=== PATIENT | male | born 1950 | race Caucasian/White ===

== ENCOUNTER 2017-09-04 16:15 | Inpatient (IN) | payer OTHER ==
[2017-09-04 16:26] VITALS: BMI 28.3
--- NOTE | 2017-09-04 16:30 | PDOC ---
Rapid Medical Evaluation Chief Complaint: Chest Pain Time Seen by Provider: 09/04/17 16:27 Medical Evaluation: Vital Signs Temp Pulse Resp BP Pulse Ox 97.8 F 174 H 18 124/82 98 09/04/17 16:23 09/04/17 16:23 09/04/17 16:23 09/04/17 16:23 09/04/17 16:23 09/04/17 16:28 Patient c/o: was at dr perea office for follow up/check up when he found to be in R afib. Pt w/ hx of cad w/ stents. C/o indegestion only Patient on brief exam: isabelle rate 170s. Pateint ordered for: labs, ekg, cxr, went directly to the main Ed for orders to be completed Patient to proceed to the ED Discharge Disposition - Diagnosis Rapid atrial fibrillation - Referrals - Patient Instructions - Post Discharge Activity
[2017-09-04] MEDS ORDERED: dilTIAZem HCL 50 MG/10 ML - 10 ML VIAL IVPUSH ONE (16:40)
[2017-09-04] MEDS ORDERED: dilTIAZem HCL 30 MG TABLET (FP) PO ONE (16:41)
[2017-09-04] MEDS ORDERED: dilTIAZem HCL 125 MG/25 ML - 25 ML VIAL ONE (16:44)
--- NOTE | 2017-09-04 16:52 | PDOC ---
History of Present Illness - General Chief Complaint: Chest Pain Stated Complaint: CHEST PAIN Time Seen by Provider: 09/04/17 16:27 - History of Present Illness Initial Comments: 09/04/17 16:46 Mr. Hawthorne is a 66 yo male w/ pmh of HTN, HLD and CAD (multiple stents, last in 2014) who presents for evaluation after regularly scheduled cardiac stress test yielded afib with rvr. Patient was sent down to ER following this. He currently has no complaints. The patient denies chest pain, shortness of breath, headache and dizziness. Denies fever, chills, nausea, vomit, diarrhea and constipation. Denies dysuria, frequency, urgency and hematuria. Allergies: NKDA Past History - Past Medical History Allergies/Adverse Reactions: Allergies Allergy/AdvReac Type Severity Reaction Status Date / Time No Known Allergies Allergy Verified 09/04/17 18:16 Home Medications: Ambulatory Orders Amlodipine Besylate 2.5 mg PO DAILY 09/04/17 Aspirin [ASA -] 81 mg PO DAILY 09/04/17 Atorvastatin Calcium 40 mg PO DAILY 09/04/17 Clopidogrel Bisulfate [Clopidogrel] 75 mg PO DAILY 09/04/17 Losartan Potassium 100 mg PO DAILY 09/04/17 Metoprolol Succinate 50 mg PO DAILY 09/04/17 Cardiac Disorders: Yes (stents) COPD: No HTN: Yes - Surgical History Cardiac Surgery: Yes (stents) - Suicide/Smoking/Psychosocial Hx Smoking History: Never smoked Review of Systems - Review of Systems Comments:: 09/04/17 17:25 GENERAL/CONSTITUTIONAL: No fever or chills. No weakness. HEAD, EYES, EARS, NOSE AND THROAT: No change in vision. No ear pain or discharge. No sore throat. CARDIOVASCULAR: No chest pain or shortness of breath RESPIRATORY: No cough, wheezing, or hemoptysis. GASTROINTESTINAL: No nausea, vomiting, diarrhea or constipation. GENITOURINARY: No dysuria, frequency, or change in urination. MUSCULOSKELETAL: No joint or muscle swelling or pain. No neck or back pain. SKIN: No rash NEUROLOGIC: No headache, vertigo, loss of consciousness, or change in strength/ sensation. ENDOCRINE: No increased thirst. No abnormal weight change HEMATOLOGIC/LYMPHATIC: No anemia, easy bleeding, or history of blood clots. ALLERGIC/IMMUNOLOGIC: No hives or skin allergy. *Physical Exam - Vital Signs Last Vital Signs Temp Pulse Resp BP Pulse Ox 97.8 F 174 H 18 124/82 98 09/04/17 16:23 09/04/17 16:23 09/04/17 16:23 09/04/17 16:23 09/04/17 16:23 - Physical Exam Comments: 09/04/17 17:25 GENERAL: Awake, alert, and fully oriented, in no acute distress HEAD: No signs of trauma, normocephalic, atraumatic EYES: PERRLA, EOMI, sclera anicteric, conjunctiva clear ENT: Auricles normal inspection, hearing grossly normal, nares patent, oropharynx clear without exudates. Moist mucosa NECK: Normal ROM, supple, no lymphadenopathy, JVD, or masses LUNGS: No distress, speaks full sentences, clear to auscultation bilaterally HEART: +Rate and rhythm extremely fluctuant from 70-170. Normal S1 and S2, no murmurs, rubs or gallops, peripheral pulses normal and equal bilaterally. ABDOMEN: Soft, nontender, normoactive bowel sounds. No guarding, no rebound. No masses EXTREMITIES: Normal inspection, Normal range of motion, no edema. No clubbing or cyanosis. NEUROLOGICAL: Cranial nerves II through XII grossly intact. Normal speech, normal gait, no focal sensorimotor deficits SKIN: Warm, Dry, normal turgor, no rashes or lesions noted. ED Treatment Course - LABORATORY CBC & Chemistry Diagram: 09/04/17 16:43 09/04/17 16:43 Medical Decision Making - Medical Decision Making 09/04/17 17:25 Mr. Hawthorne is a 66 yo male w/ pmh as described who presents for evaluation of noted afib at scheduled exam. Discussed patient with Dr. Miller who suggests administration of daily metoprolol (had been holding for scheduled stress test today) and rate control with diltiazem - also A/C following labs. Will comply. Cardiac workup started. Per cardiology daily meds: 2.5 amlodipine asa 81 plavix 75 losartan 40 metoprolol succinate 09/04/17 18:03 Patient currently feeling fine however history concerning, admitting for telemetry and further cardiology workup. 09/04/17 18:51 Patient admitted to hospitalist team. *DC/Admit/Observation/Transfer Diagnosis at time of Disposition: Rapid atrial fibrillation - Discharge Dispostion Decision to Admit order: Yes - Referrals Referrals: Marco Leon [Primary Care Provider] - - Patient Instructions - Post Discharge Activity
[2017-09-04 17:10] LABS: BASO % 0.8 % (0-2.0); HEMATOCRIT 43.2 % (35.4-49); HEMOGLOBIN 14.8 GM/dL (11.7-16.9); LYMPH % 33.4 % (8-40); MCH 29.9 pg (25.7-33.7); MCHC 34.3 g/dl (32.0-35.9); MEAN CELL VOLUME 87.2 fl (80-96); MEAN PLT VOLUME 8.7 fl (7.5-11.1); MONO % 10.6 % (3.8-10.2); NEUT % 51.2 % (42.8-82.8); PLATELET COUNT 163 K/MM3 (134-434); RBC 4.96 M/mm3 (4.00-5.60); RDW 13.9 % (11.9-15.9); WHITE BLOOD COUNT 6.4 K/mm3 (4.0-10.0)
[2017-09-04 17:32] LABS: INR 1.02 (0.82-1.09); PROTHROMBIN TIME (PATIENT) 11.5 SEC (9.7-13.0)
--- NOTE | 2017-09-04 17:33 | PDOC ---
Attending Attestation - Resident Resident Name: Rivas Villafuerte - ED Attending Attestation I have performed the following: I have examined & evaluated the patient, The case was reviewed & discussed with the resident, I agree w/resident's findings & plan, Exceptions are as noted - HPI HPI: 09/04/17 17:30 66-year-old male sent from cardiology for new onset atrial fibrillation, rate in the 170s. The patient's feather cutting machine feeder is preparing him for stress test at this time. Patient does have a history of coronary artery disease and has had prior cardiac stents - Physicial Exam PE: 09/04/17 17:34 66 yo male with rapid heart rate head ncat neck supple lungs no rales,no wheezing cvs- tachycardia, irreg,irreg rhythm abd soft,nontender ext no edema neuro axox3,ambulatory psych appropriate skin warm and dry - Medical Decision Making 09/04/17 17:36 case discussed w feather cutting machine feeder, will trend the trop, plan is for stress test after r/o IA
[2017-09-04 17:37] LABS: URINE APPEARANCE CLEAR; URINE BILIRUBIN NEGATIVE (<2.0 mg/dL); URINE COLOR COLORLESS; URINE GLUCOSE (UA) NEGATIVE (NEGATIVE); URINE KETONE NEGATIVE (NEGATIVE); URINE LEUK ESTERASE NEGATIVE (NEGATIVE); URINE NITRITE NEGATIVE (NEGATIVE); URINE PROTEIN NEGATIVE (NEGATIVE); URINE UROBILINOGEN NEGATIVE mg/dL (0.2-1.0)
[2017-09-04 17:44] LABS: ALBUMIN 3.8 g/dl (3.4-5.0); ANION GAP 9 (8-16); BILIRUBIN,TOTAL 0.9 mg/dL (0.2-1.0); BLOOD UREA NITROGEN 17 mg/dL (7-18); CALCIUM 8.6 mg/dL (8.5-10.1); CHLORIDE 107 mmol/L (98-107); CO2 25 mmol/L (21-32); GLUCOSE,RANDOM 85 mg/dL (74-106); POTASSIUM 3.9 mmol/L (3.5-5.1); SGOT/AST 22 U/L (15-37); SGPT/ALT 36 U/L (12-78); SODIUM 141 mmol/L (136-145); TOT PROT 7.1 g/dl (6.4-8.2)
[2017-09-04 17:47] LABS: ALK PHOS 71 U/L (45-117)
[2017-09-04] MEDS ORDERED: HEPARIN NA (PORCINE) 5,000 UNITS/ML 1ML VIAL IVPUSH PRN ×2 (18:16→21:36)
[2017-09-04] MEDS ORDERED: HEPARIN INFUSION - 25,000 UNITS/500 ML INFUS.BAG IVPB ONE (18:33)
[2017-09-04] MEDS: HEPARIN - 25,000 UNIT in SODIUM CHLORIDE 495 ML IV SCH (18:54)
--- NOTE | 2017-09-04 19:54 | PN ---
Teaching Attending Note Name of Resident: Kristin Castaneda ATTENDING PHYSICIAN STATEMENT I saw and evaluated the patient. I reviewed the resident's note and discussed the case with the resident. I agree with the resident's findings and plan as documented. SUBJECTIVE: Patient is a 66 year old man with pmh of HTN, HLD and CAD (multiple stents, last in 2014) who presents for evaluation after regularly scheduled cardiac stress test yielded Afib with RVR. 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 He currently has no complaints. OBJECTIVE: Alert and in no acute distress Vital Signs Period Temp Pulse Resp BP Sys/Nieto Pulse Ox Last 24 Hr 97.8 F-98.1 F 64-174 17-18 115-124/82-84 98-98 HEENT: No Jaundice, eye redness or discharge, PERRLA, EOMI. Normocephalic, atraumatic. External ears are normal and hearing is grossly intact. No nasal discharge. Neck: Supple, nontender. No palpable adenopathy or thyromegaly. No JVD Chest: Good effort. Clear to auscultation and percussion. Heart: Now in NSR after treatment in the ER. No S3, rub or murmur Abdomen: Not distended, soft, nontender and no HSM. No rebound or guarding. Normoactive bowel sounds. Ext: Peripheral pulses intact. No leg edema. Skin: Warm and dry. No petechiae, rash or ecchymosis. Neuro: Alert. Oriented x3. CN 2-12 grossly intact. Sensation grossly intact in all four extremities and DTR are symmetric. Current Medications Generic Name Dose Route Start Last Admin Trade Name Freq PRN Reason Stop Dose Admin Heparin Sodium (Porcine) 5,000 unit 09/04/17 18:16 Heparin - IVPUSH PRN PRN Heparin Heparin Sodium (Porcine) 25, 500 mls @ 20 mls/hr 09/04/17 18:30 09/04/17 18: 54 000 unit/ Sodium Chloride IV 1,000 unit/hr TITR DARRIAN 20 mls/hr Administration Protocol 1,000 UNIT/HR Home Medications Medication Instructions Recorded Amlodipine Besylate 2.5 mg PO DAILY 09/04/17 Aspirin [ASA -] 81 mg PO DAILY 09/04/17 Atorvastatin Calcium 40 mg PO DAILY 09/04/17 Clopidogrel Bisulfate [Clopidogrel] 75 mg PO DAILY 09/04/17 Losartan Potassium 100 mg PO DAILY 09/04/17 Metoprolol Succinate 50 mg PO DAILY 09/04/17 Abnormal Lab Results 09/04/17 09/04/17 16:43 16:43 Monocytes % 10.6 H CK-MB (CK-2) 4.09 H Current Medications Generic Name Dose Route Start Last Admin Trade Name Freq PRN Reason Stop Dose Admin Amlodipine Besylate 2.5 mg 09/05/17 10:00 Norvasc - PO DAILY [facility] Aspirin 81 mg 09/05/17 10:00 Asa - PO DAILY [facility] Atorvastatin Calcium 40 mg 09/04/17 22:00 Lipitor - PO HS [facility] Clopidogrel Bisulfate 75 mg 09/05/17 10:00 Plavix - PO DAILY [facility] Heparin Sodium (Porcine) 5,000 unit 09/04/17 18:16 Heparin - IVPUSH PRN PRN Heparin Heparin Sodium (Porcine) 1,000 unit 09/04/17 21:36 Heparin - IVPUSH PRN PRN Heparin Heparin Sodium (Porcine) 25, 500 mls @ 20 mls/hr 09/04/17 18:30 09/04/17 18: 54 000 unit/ Sodium Chloride IV 1,000 unit/hr TITR DARRIAN 20 mls/hr Administration Protocol 1,000 UNIT/HR Losartan Potassium 100 mg 09/05/17 10:00 Losartan Potassium PO DAILY [facility] Metoprolol Succinate 50 mg 09/05/17 10:00 Toprol Xl - PO DAILY [facility] ASSESSMENT AND PLAN: 1. New onset Afib with RVR - Patient started on IV heparin drip and on Metoprolol for rate control. Transition to a DOAC tomorrow for anticoagulation and get ECHO. EKG now shows NSR but had afib with RVR on arrival. No significant ST-T changes. Will monitor on Telemetry and do serial EKG and Troponin to rule out ACS. No infiltrates on CXR. 2. Hypertension - Continue current regimen. 3. DVT prophylaxis - On IV Heparin drip 4. Advance directives - Full code
--- NOTE | 2017-09-04 21:50 | HP ---
CHIEF COMPLAINT: Irregular HR PCP: Dr Vivi Cullen HISTORY OF PRESENT ILLNESS: The patient is a 66 year old male with a significant PMH of HTN, dyslipidemia, CAD, s/p 8 stents in 2014, 2015 that presented to the hospital referred from his [facility] office. He was about to have stress test, when he was found to have rapid A.Fib with RVR at 170. He was immidiately referred to the hospital. The patient denies having chest pain, palpitations, dizziness, lightheadedness. He denies having irregular heart rate in the past. The patient states that his housing counselor told him not to take Metoprolol for the past two days. He denies abdominal pain, N/V, diarrhea, fever, chills. He denies dysuria, increased frequency, urgency to urinate. 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 Family History: Parents: he doesn't know their PMH daughter: HTN Allergies No Known Allergies Allergy (Verified 09/04/17 18:16) HOME MEDICATIONS: Home Medications Medication Instructions Recorded Amlodipine Besylate 2.5 mg PO DAILY 09/04/17 Aspirin [ASA -] 81 mg PO DAILY 09/04/17 Atorvastatin Calcium 40 mg PO DAILY 09/04/17 Clopidogrel Bisulfate [Clopidogrel] 75 mg PO DAILY 09/04/17 Losartan Potassium 100 mg PO DAILY 09/04/17 Metoprolol Succinate 50 mg PO DAILY 09/04/17 REVIEW OF SYSTEMS CONSTITUTIONAL: Absent: fever, chills, diaphoresis, generalized weakness, malaise, loss of appetite, weight change HEENT: Absent: rhinorrhea, nasal congestion, throat pain, throat swelling, difficulty swallowing, visual changes CARDIOVASCULAR: Absent: chest pain, syncope, palpitations, irregular heart rate, lightheadedness , peripheral edema RESPIRATORY: Absent: cough, shortness of breath, dyspnea with exertion, orthopnea, wheezing GASTROINTESTINAL: Absent: abdominal pain, abdominal distension, nausea, vomiting, diarrhea, constipation GENITOURINARY: Absent: dysuria, frequency, urgency, hesitancy, hematuria, flank pain, MUSCULOSKELETAL: chronic knee pain Absent: myalgia, joint swelling, back pain, neck pain SKIN: Absent: rash, itching, pallor HEMATOLOGIC/IMMUNOLOGIC: Absent: easy bleeding, easy bruising, lymphadenopathy, frequent infections ENDOCRINE: Absent: unexplained weight gain, unexplained weight loss NEUROLOGIC: Absent: headache, focal weakness or paresthesias, dizziness, unsteady gait, seizure, mental status changes PSYCHIATRIC: Absent: anxiety, depression PHYSICAL EXAMINATION Vital Signs - 24 hr 09/04/17 09/04/17 09/04/17 16:23 16:57 17:26 Temperature 97.8 F 98.1 F Pulse Rate 174 H Pulse Rate [ 64 Apical] Respiratory 18 17 Rate Blood Pressure 124/82 Blood Pressure [Left Arm] Blood Pressure 115/84 [Right Arm] O2 Sat by Pulse 98 98 98 Oximetry (%) 09/04/17 20:01 Temperature 98.2 F Pulse Rate Pulse Rate [ 63 Apical] Respiratory 17 Rate Blood Pressure Blood Pressure 112/78 [Left Arm] Blood Pressure [Right Arm] O2 Sat by Pulse 100 Oximetry (%) GENERAL: Awake, alert, and fully oriented, in no acute distress, lying comfortably in bed. HEAD: Normal with no signs of trauma. EYES: Pupils equal, round and reactive to light, extraocular movements intact, sclera anicteric, conjunctiva clear. EARS, NOSE, THROAT: Oropharynx clear without exudates. Moist mucous membranes. NECK: Normal range of motion, supple without lymphadenopathy, JVD, or masses. LUNGS: Breath sounds equal, clear to auscultation bilaterally. No wheezes, and no crackles. No accessory muscle use. HEART: Regular rate and rhythm, normal S1 and S2 without murmur, rub or gallop. ABDOMEN: Soft, nontender, not distended, normoactive bowel sounds, no guarding, no rebound, no masses. No hepatomegaly or splenomegaly. MUSCULOSKELETAL: Normal range of motion at all joints. No bony deformities or tenderness. UPPER EXTREMITIES: No peripheral edema. LOWER EXTREMITIES: 2+ pulses, no peripheral edema. NEUROLOGICAL: No facial asymmetry, no slurred speech, normal motor 5/5 in all extremities. Gait not observed. PSYCHIATRIC: Cooperative. Good eye contact. Appropriate mood and affect. SKIN: Warm, dry, normal turgor, no rashes or lesions noted. Laboratory Results - last 24 hr 09/04/17 09/04/17 09/04/17 16:43 16:43 16:43 WBC 6.4 RBC 4.96 Hgb 14.8 Hct 43.2 MCV 87.2 MCH 29.9 MCHC 34.3 RDW 13.9 Plt Count 163 MPV 8.7 Absolute Neuts (auto) 3.3 Neutrophils % 51.2 Lymphocytes % 33.4 Monocytes % 10.6 H Eosinophils % 4.0 Basophils % 0.8 Nucleated RBC % 0 PT with INR INR PTT (Actin FS) Sodium 141 Potassium 3.9 Chloride 107 Carbon Dioxide 25 Anion Gap 9 BUN 17 Creatinine 1.0 Creat Clearance w eGFR > 60 Random Glucose 85 Calcium 8.6 Total Bilirubin 0.9 AST 22 ALT 36 Alkaline Phosphatase 71 Creatine Kinase 172 Creatine Kinase Index 2.3 CK-MB (CK-2) 4.09 H Troponin I < 0.02 Total Protein 7.1 Albumin 3.8 Urine Color Urine Appearance Urine pH Ur Specific [place] Urine Protein Urine Glucose (UA) Urine Ketones Urine Blood Urine Nitrite Urine Bilirubin Urine Urobilinogen Ur Leukocyte Esterase Blood Type O POSITIVE Antibody Screen Negative 09/04/17 09/04/17 09/04/17 16:50 16:52 18:55 WBC RBC Hgb Hct MCV MCH MCHC RDW Plt Count MPV Absolute Neuts (auto) Neutrophils % Lymphocytes % Monocytes % Eosinophils % Basophils % Nucleated RBC % PT with INR 11.50 INR 1.02 PTT (Actin FS) 36.4 Sodium Potassium Chloride Carbon Dioxide Anion Gap BUN Creatinine Creat Clearance w eGFR Random Glucose Calcium Total Bilirubin AST ALT Alkaline Phosphatase Creatine Kinase Creatine Kinase Index CK-MB (CK-2) Troponin I Total Protein Albumin Urine Color Colorless Urine Appearance Clear Urine pH 6.0 Ur Specific [place] 1.003 Urine Protein Negative Urine Glucose (UA) Negative Urine Ketones Negative Urine Blood Negative Urine Nitrite Negative Urine Bilirubin Negative Urine Urobilinogen Negative Ur Leukocyte Esterase Negative Blood Type Antibody Screen ASSESSMENT/PLAN: The patient is a 66 year old male with a significant PMH of HTN, dyslipidemia, CAD, s/p 8 stents in 2014, 2015 that presented to the hospital referred from his [facility] [employer] office. He was about to have stress test, when he was found to have rapid A.Fib with RVR at 170. He is admitted for new onset A.Fib. with RVR. New onset A.Fib with RVR: -not known what triggered new onset, acute coronary syndrome needs to be R/O -the patient was given Cardizem 20 mg IV followed by 30 mg PO in ED -as per his [employer] recommendations ED restarted Metoprolol 50 mg PO daily -he was also started on AC: Heparin drip -first troponin in ED was negative, will follow serial troponins -will follow EKG, -ECHO ordered -cardiac monitoring -telemetry monitoring HTN: -continue Metoprolol 50 mg qd and Losartan 10 mg qd -controlled in the hospital 124/82 on admission CAD: -continue ASA and Plavix -no chest pain, neg troponins DVT PPX: -on heparin drip -scds F/E/N: no/no changes/low Na Disposition: telemetry Discussed with attending Dr Murry Problem List - Problem (1) Hypertension Code(s): I10 - ESSENTIAL (PRIMARY) HYPERTENSION (2) Dyslipidemia Code(s): E78.5 - HYPERLIPIDEMIA, UNSPECIFIED (3) CAD (coronary artery disease) Code(s): I25.10 - ATHSCL HEART DISEASE OF [place] CORONARY ARTERY W/O ANG PCTRS (4) Rapid atrial fibrillation Code(s): I48.91 - UNSPECIFIED ATRIAL FIBRILLATION Visit type - Emergency Visit Emergency Visit: Yes ED Registration Date: 09/04/17 Care time: The patient presented to the Emergency Department on the above date and was hospitalized for further evaluation of their emergent condition. - New Patient This patient is new to me today: Yes Date on this admission: 09/05/17 - Critical Care Critical Care patient: No Hospitalist Screening - Colonoscopy Questionnaire Colonoscopy Questionnaire: Colonoscopy Questionnaire - Patient: 50 - 75 years old and never had a screening colonoscopy: Unknown History of colon or rectal polyps, or CA: Unknown History of IBD, Crohn's disease or UC: Unknown History of abdominal radiation therapy as a child: Unknown - Relative: 1 with colon or rectal CA, or polyps at age 60 or younger: Unknown Colon or rectal CA diagnosed at age 45 or younger: Unknown Multiple relatives with colon or rectal CA: Unknown - Outcome: Screening Result: Negative Screen
[2017-09-04] MEDS: ATORVASTATIN CA 40 MG TABLET (FP) PO SCH (22:20)
[2017-09-04] MEDS ORDERED: ATORVASTATIN CA 40 MG TABLET (FP) ONE (22:38)
[2017-09-05 00:59] LABS: INR 1.12 (0.82-1.09); PROTHROMBIN TIME (PATIENT) 12.7 SEC (9.7-13.0)
[2017-09-05 06:50] LABS: BASO % 0.9 % (0-2.0); EOS % 4.7 % (0-4.5); HEMATOCRIT 39.9 % (35.4-49); HEMOGLOBIN 13.8 GM/dL (11.7-16.9); LYMPH % 30.5 % (8-40); MCH 30.2 pg (25.7-33.7); MCHC 34.6 g/dl (32.0-35.9); MEAN CELL VOLUME 87.3 fl (80-96); MEAN PLT VOLUME 8.5 fl (7.5-11.1); MONO % 8.3 % (3.8-10.2); NEUT % 55.6 % (42.8-82.8); PLATELET COUNT 137 K/MM3 (134-434); RBC 4.57 M/mm3 (4.00-5.60); RDW 13.8 % (11.9-15.9); WHITE BLOOD COUNT 6.1 K/mm3 (4.0-10.0)
[2017-09-05 07:20] LABS: INR 1.07 (0.82-1.09); PROTHROMBIN TIME (PATIENT) 12.1 SEC (9.7-13.0)
[2017-09-05 07:28] LABS: CHOLESTEROL 90 mg/dL (50-200)
[2017-09-05 07:33] LABS: HDL CHOLESTEROL 33 mg/dL (40-60); TRIGLYCERIDES 81 mg/dL (35-160)
[2017-09-05] MEDS: HEPARIN - 25,000 UNIT in SODIUM CHLORIDE 495 ML IV SCH (07:44)
[2017-09-05 08:54] LABS: ALBUMIN 3.4 g/dl (3.4-5.0); ANION GAP 10 (8-16); BLOOD UREA NITROGEN 18 mg/dL (7-18); CALCIUM 8.2 mg/dL (8.5-10.1); CHLORIDE 108 mmol/L (98-107); CO2 23 mmol/L (21-32); CREATININE 0.9 mg/dL (0.7-1.3); GLUCOSE,RANDOM 118 mg/dL (74-106); PHOSPHOROUS 2.6 mg/dL (2.5-4.9); POTASSIUM 3.8 mmol/L (3.5-5.1); SGOT/AST 19 U/L (15-37); SGPT/ALT 32 U/L (12-78); SODIUM 141 mmol/L (136-145)
[2017-09-05 08:59] LABS: ALK PHOS 62 U/L (45-117); BILIRUBIN,TOTAL 0.7 mg/dL (0.2-1.0); TOT PROT 6.2 g/dl (6.4-8.2)
[2017-09-05] MEDS: LOSARTAN POTASSIUM 50 MG TABLET (FP) PO SCH (09:51)
[2017-09-05] MEDS: CLOPIDOGREL BISULFATE 75 MG TABLET (FP) PO SCH (09:51)
[2017-09-05] MEDS ORDERED: amLODIPine BESYLATE 2.5 MG TABLET (FP) PO SCH (10:00)
[2017-09-05] MEDS ORDERED: ASPIRIN 81 MG CHEWABLE TABLETS PO SCH (10:00)
--- NOTE | 2017-09-05 10:40 | EKG ---
Test Reason : Blood Pressure : / mmHG Vent. Rate : 055 BPM Atrial Rate : 055 BPM P-R Int : 166 ms QRS Dur : 088 ms QT Int : 444 ms P-R-T Axes : 010 -21 044 degrees QTc Int : 424 ms SINUS BRADYCARDIA OTHERWISE NORMAL ECG WHEN COMPARED WITH ECG OF 04-SEP-2017 16:34, NO SIGNIFICANT CHANGE WAS FOUND Confirmed by ISABEL SEARS MD ([id number]) on 09/05/2017 10:40:39 AM Referred By: Parminder CHAPPELL Confirmed By:ISABEL SEARS MD
--- NOTE | 2017-09-05 10:41 | EKG ---
Test Reason : Blood Pressure : / mmHG Vent. Rate : 077 BPM Atrial Rate : 077 BPM P-R Int : 162 ms QRS Dur : 088 ms QT Int : 348 ms P-R-T Axes : 035 -33 045 degrees QTc Int : 393 ms NORMAL SINUS RHYTHM WITH SINUS ARRHYTHMIA POSSIBLE LEFT ATRIAL ENLARGEMENT LEFT AXIS DEVIATION ABNORMAL ECG NO PREVIOUS ECGS AVAILABLE Confirmed by ISABEL SEARS MD ([id number]) on 09/05/2017 10:41:33 AM Referred By: Confirmed By:ISABEL SEARS MD
--- NOTE | 2017-09-05 12:02 | PN ---
Progress Note, Physician History of Present Illness: sent from the office for PAF with RVR PMH CAD- Positive treadmill stress test May 02, 2014 Ila [place] of mid LCx December 24, 2014 Dr. Ravi [place] of pLAD October 08, 2014 Dr. Ravi Hypertension 2000 PCI [place] pLCX and OM1 2014 Dr. Ravi PCI LAD October 07, 2015 Dr. Ravi PCI p and mRCA [place] [employer] 2014 Dr. Ravi Triple vessel coronary artery disease September 25, 2014 Dr. Ravi Paroxysmal Atrial Fibrillation August 2017 - Current Medication List Current Medications: Active Medications Aspirin (Asa -) 81 mg PO DAILY [facility] Last Admin: 09/05/17 09:51 Dose: 81 mg Atorvastatin Calcium (Lipitor -) 40 mg PO HS [facility] Last Admin: 09/04/17 22:20 Dose: 40 mg Clopidogrel Bisulfate (Plavix -) 75 mg PO DAILY [facility] Last Admin: 09/05/17 09:51 Dose: 75 mg Heparin Sodium (Porcine) (Heparin -) 5,000 unit IVPUSH PRN PRN PRN Reason: Heparin Heparin Sodium (Porcine) (Heparin -) 1,000 unit IVPUSH PRN PRN PRN Reason: Heparin Heparin Sodium (Porcine) 25, (000 unit/ Sodium Chloride) 500 mls @ 20 mls/hr IV TITR [facility]; Protocol Last Admin: 09/05/17 07:44 Dose: 900 unit/hr, 18 mls/hr Losartan Potassium (Cozaar -) 100 mg PO DAILY [facility] Last Admin: 09/05/17 09:51 Dose: 100 mg Metoprolol Succinate (Toprol Xl -) 50 mg PO DAILY [facility] Last Admin: 09/05/17 09:51 Dose: 50 mg - Objective Vital Signs: Vital Signs Temperature 98 F 09/05/17 09:48 Pulse Rate 60 09/05/17 09:48 Respiratory Rate 20 09/05/17 10:56 Blood Pressure 130/79 09/05/17 09:48 O2 Sat by Pulse Oximetry (%) 100 09/05/17 10:56 Eyes: Yes: WNL, Conjunctiva Clear, EOM Intact HENT: Yes: WNL, Atraumatic, Normocephalic Neck: Yes: WNL, Supple, Trachea Midline Cardiovascular: Yes: WNL, Regular Rate and Rhythm Respiratory: Yes: WNL, Regular, CTA Bilaterally Gastrointestinal: Yes: WNL, Normal Bowel Sounds Genitourinary: Yes: WNL Musculoskeletal: Yes: WNL Extremities: Yes: WNL Edema: No Integumentary: Yes: WNL Neurological: Yes: WNL, Alert, Oriented ...Motor Strength: WNL Psychiatric: Yes: WNL Labs: CBC, BMP 09/05/17 06:30 09/05/17 06:30 INR, PTT INR 1.07 (0.82-1.09) 09/05/17 06:30 Laboratory Tests 09/04/17 09/04/17 09/04/17 16:43 16:43 16:43 WBC 6.4 RBC 4.96 Hgb 14.8 Hct 43.2 MCV 87.2 MCH 29.9 MCHC 34.3 RDW 13.9 Plt Count 163 MPV 8.7 Absolute Neuts (auto) 3.3 Neutrophils % 51.2 Lymphocytes % 33.4 Monocytes % 10.6 H Eosinophils % 4.0 Basophils % 0.8 Nucleated RBC % 0 PT with INR INR PTT (Actin FS) Sodium 141 Potassium 3.9 Chloride 107 Carbon Dioxide 25 Anion Gap 9 BUN 17 Creatinine 1.0 Creat Clearance w eGFR > 60 Random Glucose 85 Calcium 8.6 Phosphorus Magnesium Total Bilirubin 0.9 AST 22 ALT 36 Alkaline Phosphatase 71 Creatine Kinase 172 Creatine Kinase Index 2.3 CK-MB (CK-2) 4.09 H Troponin I < 0.02 Total Protein 7.1 Albumin 3.8 Triglycerides Cholesterol Total LDL Cholesterol HDL Cholesterol Urine Color Urine Appearance Urine pH Ur Specific [place] Urine Protein Urine Glucose (UA) Urine Ketones Urine Blood Urine Nitrite Urine Bilirubin Urine Urobilinogen Ur Leukocyte Esterase Blood Type O POSITIVE Antibody Screen Negative 09/04/17 09/04/17 09/04/17 16:50 16:52 18:55 WBC RBC Hgb Hct MCV MCH MCHC RDW Plt Count MPV Absolute Neuts (auto) Neutrophils % Lymphocytes % Monocytes % Eosinophils % Basophils % Nucleated RBC % PT with INR 11.50 INR 1.02 PTT (Actin FS) 36.4 Sodium Potassium Chloride Carbon Dioxide Anion Gap BUN Creatinine Creat Clearance w eGFR Random Glucose Calcium Phosphorus Magnesium Total Bilirubin AST ALT Alkaline Phosphatase Creatine Kinase Creatine Kinase Index CK-MB (CK-2) Troponin I Total Protein Albumin Triglycerides Cholesterol Total LDL Cholesterol HDL Cholesterol Urine Color Colorless Urine Appearance Clear Urine pH 6.0 Ur Specific [place] 1.003 Urine Protein Negative Urine Glucose (UA) Negative Urine Ketones Negative Urine Blood Negative Urine Nitrite Negative Urine Bilirubin Negative Urine Urobilinogen Negative Ur Leukocyte Esterase Negative Blood Type Antibody Screen 09/05/17 09/05/17 09/05/17 00:40 00:40 00:40 WBC RBC Hgb Hct MCV MCH MCHC RDW Plt Count MPV Absolute Neuts (auto) Neutrophils % Lymphocytes % Monocytes % Eosinophils % Basophils % Nucleated RBC % PT with INR 12.70 INR 1.12 PTT (Actin FS) 76.7 H D Sodium Potassium Chloride Carbon Dioxide Anion Gap BUN Creatinine Creat Clearance w eGFR Random Glucose Calcium Phosphorus Magnesium Total Bilirubin AST ALT Alkaline Phosphatase Creatine Kinase Creatine Kinase Index CK-MB (CK-2) Troponin I < 0.02 Total Protein Albumin Triglycerides Cholesterol Total LDL Cholesterol HDL Cholesterol Urine Color Urine Appearance Urine pH Ur Specific [place] Urine Protein Urine Glucose (UA) Urine Ketones Urine Blood Urine Nitrite Urine Bilirubin Urine Urobilinogen Ur Leukocyte Esterase Blood Type Antibody Screen 09/05/17 09/05/17 09/05/17 06:30 06:30 06:30 WBC 6.1 RBC 4.57 Hgb 13.8 Hct 39.9 MCV 87.3 MCH 30.2 MCHC 34.6 RDW 13.8 Plt Count 137 MPV 8.5 Absolute Neuts (auto) 3.4 Neutrophils % 55.6 Lymphocytes % 30.5 Monocytes % 8.3 Eosinophils % 4.7 H Basophils % 0.9 Nucleated RBC % 0 PT with INR 12.10 INR 1.07 PTT (Actin FS) 85.0 H Sodium 141 Potassium 3.8 Chloride 108 H Carbon Dioxide 23 Anion Gap 10 BUN 18 Creatinine 0.9 Creat Clearance w eGFR > 60 Random Glucose 118 H D Calcium 8.2 L Phosphorus 2.6 Magnesium 2.0 Total Bilirubin 0.7 D AST 19 ALT 32 Alkaline Phosphatase 62 Creatine Kinase Creatine Kinase Index CK-MB (CK-2) Troponin I < 0.02 Total Protein 6.2 L Albumin 3.4 Triglycerides Cholesterol Total LDL Cholesterol HDL Cholesterol Urine Color Urine Appearance Urine pH Ur Specific [place] Urine Protein Urine Glucose (UA) Urine Ketones Urine Blood Urine Nitrite Urine Bilirubin Urine Urobilinogen Ur Leukocyte Esterase Blood Type Antibody Screen 09/05/17 06:30 WBC RBC Hgb Hct MCV MCH MCHC RDW Plt Count MPV Absolute Neuts (auto) Neutrophils % Lymphocytes % Monocytes % Eosinophils % Basophils % Nucleated RBC % PT with INR INR PTT (Actin FS) Sodium Potassium Chloride Carbon Dioxide Anion Gap BUN Creatinine Creat Clearance w eGFR Random Glucose Calcium Phosphorus Magnesium Total Bilirubin AST ALT Alkaline Phosphatase Creatine Kinase Creatine Kinase Index CK-MB (CK-2) Troponin I Total Protein Albumin Triglycerides 81 Cholesterol 90 Total LDL Cholesterol 53 HDL Cholesterol 33 L Urine Color Urine Appearance Urine pH Ur Specific [place] Urine Protein Urine Glucose (UA) Urine Ketones Urine Blood Urine Nitrite Urine Bilirubin Urine Urobilinogen Ur Leukocyte Esterase Blood Type Antibody Screen Problem List - Problems (1) CAD (coronary artery disease) Code(s): I25.10 - ATHSCL HEART DISEASE OF [place] CORONARY ARTERY W/O ANG PCTRS (2) Dyslipidemia Code(s): E78.5 - HYPERLIPIDEMIA, UNSPECIFIED (3) Hypertension Code(s): I10 - ESSENTIAL (PRIMARY) HYPERTENSION (4) Rapid atrial fibrillation Code(s): I48.91 - UNSPECIFIED ATRIAL FIBRILLATION Assessment/Plan new onset PAF with RVR 175 currently in nsr CAD- Positive treadmill stress test May 02, 2014 [facility] [place] of mid LCx December 24, 2014 Dr. Ravi [place] of pLAD October 08, 2014 Dr. Ravi Hypertension 2000 PCI [place] pLCX and OM1 2014 Dr. Ravi PCI LAD October 07, 2015 Dr. Ravi PCI p and mRCA [place] [employer] 2014 Dr. Ravi Triple vessel coronary artery disease September 25, 2014 Dr. Ravi Paroxysmal Atrial Fibrillation August 2017 Plan telemetry echo ac with xarelto, d/c heparine after xarelto startted d/c asa cont plavix d/c norvasc start cardizem cont bb will f/u
[2017-09-05] MEDS ORDERED: dilTIAZem HCL 60 MG TABLET (FP) ONE (15:11)
--- NOTE | 2017-09-05 17:52 | PN ---
Physical Exam: SUBJECTIVE: Patient seen and examined in the ER awaiting bed assignment. No chest pain, not short of breath. Feels well. Denies chest pain yesterday when heart rate was elevated. Resting comfortably. OBJECTIVE: started on a heparin drip per cardiology, stop heparin drip now>start xarelto 20mg at 8pm (two hours after stopping heparin drip, discussed with pharmacy) Vital Signs Period Temp Pulse Resp BP Sys/Nieto Pulse Ox Last 24 Hr 98 F-98.2 F 55-66 17-20 98-130/54-80 99-100 GENERAL: The patient is awake, alert, and fully oriented, in no acute distress. HEAD: Normal with no signs of trauma. EYES: PERRL, extraocular movements intact, sclera anicteric, conjunctiva clear. No ptosis. ENT: Ears normal, nares patent, oropharynx clear without exudates, moist mucous membranes. NECK: Trachea midline, full range of motion, supple. LUNGS: Breath sounds equal, clear to auscultation bilaterally, no wheezes, no crackles, no accessory muscle use. 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 ABDOMEN: Soft, nontender, nondistended, normoactive bowel sounds, no guarding, no rebound, no hepatosplenomegaly, no masses. EXTREMITIES: no edema. NEUROLOGICAL: Normal speech, gait not observed. PSYCH: Normal mood, normal affect. SKIN: Warm, dry, normal turgor, no rashes or lesions noted Laboratory Results - last 24 hr 09/04/17 09/04/17 09/04/17 16:43 16:43 18:55 WBC RBC Hgb Hct MCV MCH MCHC RDW Plt Count MPV Absolute Neuts (auto) Neutrophils % Lymphocytes % Monocytes % Eosinophils % Basophils % Nucleated RBC % PT with INR INR PTT (Actin FS) 36.4 Sodium Potassium Chloride Carbon Dioxide Anion Gap BUN Creatinine Creat Clearance w eGFR Random Glucose Calcium Phosphorus Magnesium Total Bilirubin AST ALT Alkaline Phosphatase Creatine Kinase Index 2.3 CK-MB (CK-2) 4.09 H Troponin I Total Protein Albumin Triglycerides Cholesterol Total LDL Cholesterol HDL Cholesterol Blood Type O POSITIVE Antibody Screen Negative 09/05/17 09/05/17 09/05/17 00:40 00:40 00:40 WBC RBC Hgb Hct MCV MCH MCHC RDW Plt Count MPV Absolute Neuts (auto) Neutrophils % Lymphocytes % Monocytes % Eosinophils % Basophils % Nucleated RBC % PT with INR 12.70 INR 1.12 PTT (Actin FS) 76.7 H D Sodium Potassium Chloride Carbon Dioxide Anion Gap BUN Creatinine Creat Clearance w eGFR Random Glucose Calcium Phosphorus Magnesium Total Bilirubin AST ALT Alkaline Phosphatase Creatine Kinase Index CK-MB (CK-2) Troponin I < 0.02 Total Protein Albumin Triglycerides Cholesterol Total LDL Cholesterol HDL Cholesterol Blood Type Antibody Screen 09/05/17 09/05/17 09/05/17 06:30 06:30 06:30 WBC 6.1 RBC 4.57 Hgb 13.8 Hct 39.9 MCV 87.3 MCH 30.2 MCHC 34.6 RDW 13.8 Plt Count 137 MPV 8.5 Absolute Neuts (auto) 3.4 Neutrophils % 55.6 Lymphocytes % 30.5 Monocytes % 8.3 Eosinophils % 4.7 H Basophils % 0.9 Nucleated RBC % 0 PT with INR 12.10 INR 1.07 PTT (Actin FS) 85.0 H Sodium 141 Potassium 3.8 Chloride 108 H Carbon Dioxide 23 Anion Gap 10 BUN 18 Creatinine 0.9 Creat Clearance w eGFR > 60 Random Glucose 118 H D Calcium 8.2 L Phosphorus 2.6 Magnesium 2.0 Total Bilirubin 0.7 D AST 19 ALT 32 Alkaline Phosphatase 62 Creatine Kinase Index CK-MB (CK-2) Troponin I < 0.02 Total Protein 6.2 L Albumin 3.4 Triglycerides Cholesterol Total LDL Cholesterol HDL Cholesterol Blood Type Antibody Screen 09/05/17 06:30 WBC RBC Hgb Hct MCV MCH MCHC RDW Plt Count MPV Absolute Neuts (auto) Neutrophils % Lymphocytes % Monocytes % Eosinophils % Basophils % Nucleated RBC % PT with INR INR PTT (Actin FS) Sodium Potassium Chloride Carbon Dioxide Anion Gap BUN Creatinine Creat Clearance w eGFR Random Glucose Calcium Phosphorus Magnesium Total Bilirubin AST ALT Alkaline Phosphatase Creatine Kinase Index CK-MB (CK-2) Troponin I Total Protein Albumin Triglycerides 81 Cholesterol 90 Total LDL Cholesterol 53 HDL Cholesterol 33 L Blood Type Antibody Screen Active Medications Generic Name Dose Route Start Last Admin Trade Name Freq PRN Reason Stop Dose Admin Atorvastatin Calcium 40 mg 09/04/17 22:00 09/04/17 22:20 Lipitor - PO 40 mg HS DARRIAN Administration Clopidogrel Bisulfate 75 mg 09/05/17 10:00 09/05/17 09:51 Plavix - PO 75 mg DAILY DARRIAN Administration Diltiazem HCl 120 mg 06/20/18 13:15 09/05/17 16:40 Cardizem Cd - PO 120 mg DAILY D[facility]RIAN Administration Losartan Potassium 100 mg 09/05/17 10:00 09/05/17 09:51 Cozaar - PO 100 mg DAILY [facility]RIAN Administration Metoprolol Succinate 50 mg 09/05/17 10:00 09/05/17 09:51 Toprol Xl - PO 50 mg DAILY DARRIAN Administration Rivaroxaban 20 mg 09/05/17 20:00 Xarelto - PO DAILY@1800 [facility] ASSESSMENT/PLAN: Patient is a 66 year old male with a significant past medical history of CAD with prior cardiac stents and hypertension. He was admitted on 09/04/17 for new onset afib with RVR (170s) that occurred while patient was being prepared for stress test. Cardiology: New Afib with RVR, now controlled No chest pain, not short of breath On Toprol 50mg daily, Cardizem 120mg daily, started on Xarelto today for afib. Stop heparin drip today at 6pm, and give Xarelto today at 8pm. Monitor on tele. Trops negative x 3. Cardiology following. Echo ordered Hypertension On Metoprolol and Losartan Controlled BP CAD, chronic On ASA and Plavix FEN tolerating PO Monitor mag, electrolytes low salt diet Monitor on tele full code. Visit type - Emergency Visit Emergency Visit: Yes ED Registration Date: 09/04/17 Care time: The patient presented to the Emergency Department on the above date and was hospitalized for further evaluation of their emergent condition. - New Patient This patient is new to me today: Yes Date on this admission: 09/05/17 - Critical Care Critical Care patient: No - Discharge Referral Referred to [facility] Med P.C.: No
[2017-09-05] MEDS ORDERED: RIVAROXABAN 20 MG TABLET PO SCH ×2 (18:00→20:00)
[2017-09-05] MEDS: ATORVASTATIN CA 40 MG TABLET (FP) PO SCH (22:05)
[2017-09-06 06:19] LABS: BASO % 0.7 % (0-2.0); EOS % 4.3 % (0-4.5); HEMATOCRIT 40.6 % (35.4-49); HEMOGLOBIN 14.1 GM/dL (11.7-16.9); MCH 30.1 pg (25.7-33.7); MCHC 34.8 g/dl (32.0-35.9); MEAN CELL VOLUME 86.6 fl (80-96); MEAN PLT VOLUME 8.7 fl (7.5-11.1); MONO % 7.8 % (3.8-10.2); NEUT % 57.2 % (42.8-82.8); PLATELET COUNT 141 K/MM3 (134-434); RBC 4.68 M/mm3 (4.00-5.60); RDW 14.2 % (11.9-15.9); WHITE BLOOD COUNT 6.1 K/mm3 (4.0-10.0)
--- NOTE | 2017-09-06 08:26 | PN ---
Physical Exam: SUBJECTIVE: Patient seen and examined at the bedside. No chest pain, not short of breath. Feels well. OBJECTIVE: Vital Signs Period Temp Pulse Resp BP Sys/Nieto Pulse Ox Last 24 Hr 97.8 F-98 F 54-60 18-20 102-130/61-80 100 GENERAL: The patient is awake, alert, and fully oriented, in no acute distress. HEAD: Normal with no signs of trauma. EYES: PERRL, extraocular movements intact, sclera anicteric, conjunctiva clear. No ptosis. ENT: Ears normal, nares patent, oropharynx clear without exudates, moist mucous membranes. NECK: Trachea midline, full range of motion, supple. LUNGS: Breath sounds equal, clear to auscultation bilaterally HEART: NSR on cardiac exercise physiologist 63, episodes of juan overnight ABDOMEN: Soft, nontender, nondistended, normoactive bowel sounds, no guarding, no rebound, no hepatosplenomegaly, no masses. EXTREMITIES: no edema. NEUROLOGICAL: Normal speech, gait not observed. PSYCH: Normal mood, normal affect. SKIN: Warm, dry, normal turgor, no rashes or lesions noted Laboratory Results - last 24 hr 09/05/17 09/06/17 09/06/17 06:30 05:30 05:30 WBC 6.1 RBC 4.68 Hgb 14.1 Hct 40.6 MCV 86.6 MCH 30.1 MCHC 34.8 RDW 14.2 Plt Count 141 MPV 8.7 Absolute Neuts (auto) 3.5 Neutrophils % 57.2 Lymphocytes % 30.0 Monocytes % 7.8 Eosinophils % 4.3 Basophils % 0.7 Nucleated RBC % 0 PTT (Actin FS) 45.8 H D Sodium 141 Potassium 3.8 Chloride 108 H Carbon Dioxide 23 Anion Gap 10 BUN 18 Creatinine 0.9 Creat Clearance w eGFR > 60 Random Glucose 118 H D Calcium 8.2 L Phosphorus 2.6 Magnesium 2.0 Total Bilirubin 0.7 D AST 19 ALT 32 Alkaline Phosphatase 62 Troponin I < 0.02 Total Protein 6.2 L Albumin 3.4 09/06/17 05:30 WBC RBC Hgb Hct MCV MCH MCHC RDW Plt Count MPV Absolute Neuts (auto) Neutrophils % Lymphocytes % Monocytes % Eosinophils % Basophils % Nucleated RBC % PTT (Actin FS) Sodium Potassium Chloride Carbon Dioxide Anion Gap BUN Creatinine Creat Clearance w eGFR Random Glucose Calcium Phosphorus Magnesium 1.9 Total Bilirubin AST ALT Alkaline Phosphatase Troponin I Total Protein Albumin Active Medications Generic Name Dose Route Start Last Admin Trade Name Coryq PRN Reason Stop Dose Admin Atorvastatin Calcium 40 mg 09/04/17 22:00 09/05/17 22:05 Lipitor - PO 40 mg HS DARRIAN Administration Clopidogrel Bisulfate 75 mg 09/05/17 10:00 09/05/17 09:51 Plavix - PO 75 mg DAILY DARRIAN Administration Diltiazem HCl 120 mg 09/05/17 13:15 09/05/17 16:40 Cardizem Cd - PO 120 mg DAILY DARRIAN Administration Losartan Potassium 100 mg 09/05/17 10:00 09/05/17 09:51 Cozaar - PO 100 mg DAILY D[facility]RIAN Administration Metoprolol Succinate 50 mg 09/05/17 10:00 09/05/17 09:51 Toprol Xl - PO 50 mg DAILY D[facility]RIAN Administration Rivaroxaban 20 mg 09/05/17 20:00 09/05/17 20:47 Xarelto - PO 20 mg DAILY@1800 DARRIAN Administration ASSESSMENT/PLAN:
[2017-09-06] MEDS: CLOPIDOGREL BISULFATE 75 MG TABLET (FP) PO SCH (09:32)
[2017-09-06] MEDS: LOSARTAN POTASSIUM 50 MG TABLET (FP) PO SCH (09:33)
[2017-09-06 09:43] VITALS: BP 120/69; PULSE 65; TEMP 98
[2017-09-06 09:58] LABS: CHLORIDE 108 mmol/L (98-107); POTASSIUM 4.1 mmol/L (3.5-5.1); SODIUM 143 mmol/L (136-145)
[2017-09-06 10:38] LABS: ALBUMIN 3.5 g/dl (3.4-5.0); ALK PHOS 62 U/L (45-117); ANION GAP 12 (8-16); BILIRUBIN,TOTAL 0.8 mg/dL (0.2-1.0); BLOOD UREA NITROGEN 14 mg/dL (7-18); CALCIUM 8.6 mg/dL (8.5-10.1); CO2 23 mmol/L (21-32); CREATININE 0.9 mg/dL (0.7-1.3); GLUCOSE,RANDOM 88 mg/dL (74-106); SGOT/AST 19 U/L (15-37); SGPT/ALT 31 U/L (12-78); TOT PROT 6.5 g/dl (6.4-8.2)
--- NOTE | 2017-09-06 12:07 | PN ---
Progress Note, Physician Chief Complaint: Pt A&Ox3; sitting up in bed; asymptomatic. Daughter (from [place]) is at bedside. History of Present Illness: Pt is a 66 yr old man (tony Marques) sent from the office for PAF with RVR PMH CAD- Positive treadmill stress test May 02, 2014 Ila [place] of mid LCx December 24, 2014 Dr. Ravi [place] of pLAD October 08, 2014 Dr. Ravi Hypertension 2000 PCI [place] pLCX and OM1 2014 Dr. Ravi PCI LAD October 07, 2015 Dr. Ravi PCI p and mRCA [place] [employer] 2014 Dr. Ravi Triple vessel coronary artery disease September 25, 2014 Dr. Ravi Paroxysmal Atrial Fibrillation August 2017 - Current Medication List Current Medications: Active Medications Atorvastatin Calcium (Lipitor -) 40 mg PO HS [facility] Last Admin: 09/05/17 22:05 Dose: 40 mg Clopidogrel Bisulfate (Plavix -) 75 mg PO DAILY [facility] Last Admin: 09/06/17 09:32 Dose: 75 mg Diltiazem HCl (Cardizem Cd -) 120 mg PO DAILY [facility] Last Admin: 09/06/17 09:32 Dose: 120 mg Losartan Potassium (Cozaar -) 100 mg PO DAILY [facility] Last Admin: 09/06/17 09:33 Dose: 100 mg Metoprolol Succinate (Toprol Xl -) 50 mg PO DAILY [facility] Last Admin: 09/06/17 09:33 Dose: 50 mg Rivaroxaban (Xarelto -) 20 mg PO DAILY@1800 [facility] Last Admin: 09/05/17 20:47 Dose: 20 mg - Objective Vital Signs: Vital Signs Temperature 98 F 09/06/17 09:00 Pulse Rate 65 09/06/17 09:00 Respiratory Rate 18 09/06/17 09:00 Blood Pressure 120/69 09/06/17 09:00 O2 Sat by Pulse Oximetry (%) 99 09/06/17 09:00 Labs: CBC, BMP 09/06/17 05:30 09/06/17 06:00 INR, PTT INR 1.07 (0.82-1.09) 09/05/17 06:30
--- NOTE | 2017-09-06 12:49 | DS ---
Physical Exam: SUBJECTIVE: Patient seen and examined OBJECTIVE: Vital Signs Period Temp Pulse Resp BP Sys/Nieto Pulse Ox Last 24 Hr 97.8 F-98 F 54-65 18-20 102-130/61-80 99 PHYSICAL EXAM GENERAL: The patient is awake, alert, and fully oriented, in no acute distress. HEAD: Normal with no signs of trauma. EYES: PERRL, extraocular movements intact, sclera anicteric, conjunctiva clear. ENT: Ears normal, nares patent, oropharynx clear without exudates, moist mucous membranes. NECK: Trachea midline, full range of motion, supple. LUNGS: Breath sounds equal, clear to auscultation bilaterally, no wheezes, no crackles, no accessory muscle use. HEART: Regular rate and rhythm, S1, S2 without murmur, rub or gallop. ABDOMEN: Soft, nontender, nondistended, normoactive bowel sounds, no guarding, no rebound, no hepatosplenomegaly, no masses. EXTREMITIES: 2+ pulses, warm, well-perfused, no edema. NEUROLOGICAL: Cranial nerves II through XII grossly intact. Normal speech, gait not observed. PSYCH: Normal mood, normal affect. SKIN: Warm, dry, normal turgor, no rashes or lesions noted. LABS Laboratory Results - last 24 hr 09/06/17 09/06/17 09/06/17 05:30 05:30 05:30 WBC 6.1 RBC 4.68 Hgb 14.1 Hct 40.6 MCV 86.6 MCH 30.1 MCHC 34.8 RDW 14.2 Plt Count 141 MPV 8.7 Absolute Neuts (auto) 3.5 Neutrophils % 57.2 Lymphocytes % 30.0 Monocytes % 7.8 Eosinophils % 4.3 Basophils % 0.7 Nucleated RBC % 0 PTT (Actin FS) 45.8 H D Sodium Potassium Chloride Carbon Dioxide Anion Gap BUN Creatinine Creat Clearance w eGFR Random Glucose Hemoglobin A1c % 4.9 Calcium Magnesium Total Bilirubin AST ALT Alkaline Phosphatase Total Protein Albumin 09/06/17 09/06/17 05:30 06:00 WBC RBC Hgb Hct MCV MCH MCHC RDW Plt Count MPV Absolute Neuts (auto) Neutrophils % Lymphocytes % Monocytes % Eosinophils % Basophils % Nucleated RBC % PTT (Actin FS) Sodium 143 Potassium 4.1 Chloride 108 H Carbon Dioxide 23 Anion Gap 12 BUN 14 D Creatinine 0.9 Creat Clearance w eGFR > 60 Random Glucose 88 D Hemoglobin A1c % Calcium 8.6 Magnesium 1.9 Total Bilirubin 0.8 AST 19 ALT 31 Alkaline Phosphatase 62 Total Protein 6.5 Albumin 3.5 HOSPITAL COURSE: Date of Admission:09/04/17 Date of Discharge: 09/06/17 Discharge Summary Reason For Visit: RAPID ATRIAL FIBRILLATION Current Active Problems CAD (coronary artery disease) (Acute) Dyslipidemia (Acute) Hypertension (Acute) Rapid atrial fibrillation (Acute) - Instructions Referrals: Marco Leon [Primary Care Provider] - - Home Medications Comprehensive Discharge Medication List: Ambulatory Orders Amlodipine Besylate 2.5 mg PO DAILY 09/04/17 Aspirin [ASA -] 81 mg PO DAILY 09/04/17 Atorvastatin Calcium 40 mg PO DAILY 09/04/17 Clopidogrel Bisulfate [Clopidogrel] 75 mg PO DAILY 09/04/17 Losartan Potassium 100 mg PO DAILY 09/04/17 Metoprolol Succinate 50 mg PO DAILY 09/04/17 - Discharge Referral Referred to [facility] Med P.C.: No
== END 2017-09-06 14:01 | disposition home or self-care (01) | DRG 310 ==
LOC: JER 16:15 → JERBED 18:05 → J4W 09-05 20:09
PROVIDERS: ADMIT Hospitalist; ATTEND Nurse Practitioner Family
DX: I48.91 Unspecified atrial fibrillation (principal); I25.10 Atherosclerotic heart disease of native coronary artery without angina pectoris; Z95.5 Presence of coronary angioplasty implant and graft; I10 Essential (primary) hypertension; E78.5 Hyperlipidemia, unspecified; I48.0 Paroxysmal atrial fibrillation
CPT/HCPCS: 36415; 71045-TC-FY; 80053; 80061; 81003; 82550; 82553; 83036; 83721; 83735; 84100; 84443; 84484; 85025; 85610; 85730; 86850; 86900; 86901; 93005; 93010; 93306-TC; 99285-25; J1644